=== PATIENT | female | born 1995 | race Caucasian/White ===

== ENCOUNTER → 2017-01-25 | Outpatient (REF) | payer BC | LOC: M SFHCCLAY 12:32 | PROVIDERS: ATTEND Nurse Practitioner Family | DX: J03.90 Acute tonsillitis, unspecified (principal) ==

== ENCOUNTER → 2017-06-26 | Outpatient (REF) | payer BC | LOC: M SFHCCLAY 16:15 | PROVIDERS: ATTEND Nurse Practitioner Family | DX: Z01.411 Encounter for gynecological examination (general) (routine) with abnormal findings (principal); N76.1 Subacute and chronic vaginitis | CPT/HCPCS: 87070; G0123 ==

== ENCOUNTER → 2017-10-11 | Outpatient (REF) | payer BC ==
[2017-10-11 17:54] LABS: CHLAMYDIA DNA AMPLIFICATION POSITIVE (NEGATIVE); GC DNA AMPLIFICATION NEGATIVE (NEGATIVE)
== END ==
LOC: M SFHCWAGY 14:26
DX: R87.615 Unsatisfactory cytologic smear of cervix (principal); Z12.4 Encounter for screening for malignant neoplasm of cervix; Z11.3 Encounter for screening for infections with a predominantly sexual mode of transmission; B96.89 Other specified bacterial agents as the cause of diseases classified elsewhere
CPT/HCPCS: 87591

== ENCOUNTER → 2017-12-19 | Outpatient (REF) | payer BC ==
[2017-12-19 15:46] LABS: CHLAMYDIA DNA AMPLIFICATION NEGATIVE (NEGATIVE); GC DNA AMPLIFICATION NEGATIVE (NEGATIVE)
== END ==
LOC: M SFHCWAGY 13:20
DX: Z11.3 Encounter for screening for infections with a predominantly sexual mode of transmission (principal); Z86.19 Personal history of other infectious and parasitic diseases
CPT/HCPCS: 87591

== ENCOUNTER → 2017-12-22 | Outpatient (CLI) | payer BC | LOC: M WUC 12:54 | DX: M22.2X2 Patellofemoral disorders, left knee (principal) | CPT/HCPCS: 73564 ==

== ENCOUNTER → 2019-09-23 | Outpatient (REF) | payer OTHER | LOC: M LAB REF 12:55 | PROVIDERS: ATTEND Nurse Practitioner Women's Health | DX: J35.01 Chronic tonsillitis (principal) ==

== ENCOUNTER → 2023-07-13 | Outpatient (CLI) | payer BC | LOC: M EKG 08:08 | PROVIDERS: ATTEND Physician Assistant Medical | DX: R00.0 Tachycardia, unspecified (principal); Z53.9 Procedure and treatment not carried out, unspecified reason ==